=== PATIENT | female | born 1955 | race Caucasian/White ===

== ENCOUNTER 2016-10-08 15:37 | Emergency (ER) | payer MEDICARE ==
[~2016-10-08] VITALS: Ht 162.6 cm; Wt 95.5 kg
[~2016-10-08 15:37] MED LIST: /CELE20CA; /CELE20CA PO; /ESCI10TA; /GLIM4TA; ACET65TA PO; ATEN50TA2; ECOT325T5; ECOT500T PO; FERR325T PO; GLUC1000; GLUC1000 PO; INSULANT SC; Januvia; KLOR10TA PO; LASI40TA; LASI40TA PO; LISI5TAB PO; LOPR50TA PO; MICA40TA; SIMV10TA2; SIMV20TA2 PO; TESS100C OR; TRAM50TA2 PO; ZITH500T PO; lotrimin TOP; mucinex PO
[2016-10-08] MEDS ORDERED: NS 1,000 ML IV ONE (16:00)
[2016-10-08] MEDS ORDERED: LISI40TAB (16:08)
[2016-10-08] MEDS ORDERED: LANTINJ4 (16:08)
[2016-10-08] MEDS ORDERED: ROSU40TA (16:08)
[2016-10-08 16:35] LABS: BASO # 0.1 K/mm3 (0.0-0.2); BASO % 0.8 % (0.0-1.0); EOS # 0.1 K/mm3 (0.0-0.50); EOS % 1.3 % (0.0-3.0); LARGE UNSTAINED CELL # 0.1 K/mm3 (0.0-0.4); LARGE UNSTAINED CELL % 1.1 % (0.0-4.0); LYMPH # 2.1 K/mm3 (1.5-4.5); LYMPH % 26.2 % (24.0-44.0); MEAN CORPUSCULAR HEMOGLOBIN 26.6 pg (27.0-33.0); MEAN CORPUSCULAR HGB CONC 33.5 g/dl (32.0-36.5); MEAN CORPUSCULAR VOLUME 79.7 fl (80.0-96.0); MONO # 0.4 K/mm3 (0.0-0.8); MONO % 4.8 % (0.0-5.0); NEUTROPHILS % 65.7 % (36.0-66.0); PLATELET COUNT, AUTOMATED 212 k/mm3 (150-450); RED CELL DISTRIBUTION WIDTH 12.8 % (11.5-14.5); WHITE BLOOD COUNT 7.6 K/mm3 (4.0-10.0)
[2016-10-08 16:35] LABS: VENOUS BASE EXCESS -0.3 (-2.0-2.0); VENOUS O2 SATURATION 85.5 % (60.0-80.0); VENOUS PARTIAL PRESSURE CO2 43.3 mmHg (38.0-50.0); VENOUS PARTIAL PRESSURE O2 50.6 mmHg (30.0-50.0); VENOUS STANDARD HCO3 23.9 MEQ/L; VENOUS TOTAL CO2 26.3 MEQ/L (24.0-28.0)
[2016-10-08 17:04] LABS: ALBUMIN/GLOBULIN RATIO 0.86 (1.00-1.93); ALKALINE PHOSPHATASE 150 U/L (45-117); ALT/SGPT 13 U/L (12-78); ANION GAP 6 MEQ/L (8-16); AST/SGOT 7 U/L (15-37); BILIRUBIN,DIRECT < 0.1 MG/DL (0.0-0.2); BILIRUBIN,TOTAL 0.3 MG/DL (0.2-1.0); BLOOD UREA NITROGEN 13 MG/DL (7-18); CALCIUM LEVEL 8.6 MG/DL (8.8-10.2); CARBON DIOXIDE LEVEL 27 MEQ/L (21-32); CHLORIDE LEVEL 98 MEQ/L (98-107); CREATININE FOR GFR 0.89 MG/DL (0.55-1.02); GLOMERULAR FILTRATION RATE > 60.0 (>45); POTASSIUM SERUM 4.1 MEQ/L (3.5-5.1); SODIUM LEVEL 131 MEQ/L (136-145); TOTAL PROTEIN 6.5 GM/DL (6.4-8.2)
[2016-10-08 17:05] LABS: GLUCOSE, FASTING 486 MG/DL (80-110)
[2016-10-08] MEDS ORDERED: HumuLIN R (REGULAR) INSULIN (NovoLIN R) **100U/ML** PER UNIT IV ONE (18:45)
[2016-10-08 20:30] VITALS: BP 168/81
[2016-10-08] MEDS ORDERED: DOXYCYCLINE HYCLATE 100 MG TAB PO ONE (20:30)
[2016-10-08] MEDS ORDERED: NYST1POW9 TOP (20:31)
[2016-10-08] MEDS ORDERED: DOXY100C37 PO (20:41)
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
== END 2016-10-08 21:11 | disposition home or self-care (01) ==
LOC: EDBD 15:37 → M ED 15:37
DX: B37.2 Candidiasis of skin and nail (principal); E11.65 Type 2 diabetes mellitus with hyperglycemia; E11.69 Type 2 diabetes mellitus with other specified complication; S31.809A Unspecified open wound of unspecified buttock, initial encounter; S41.001A Unspecified open wound of right shoulder, initial encounter; X58.XXXA Exposure to other specified factors, initial encounter; Y92.89 Other specified places as the place of occurrence of the external cause; Y93.89 Activity, other specified; Y99.8 Other external cause status; I10 Essential (primary) hypertension; E78.9 Disorder of lipoprotein metabolism, unspecified; E07.9 Disorder of thyroid, unspecified; E66.01 Morbid (severe) obesity due to excess calories; I48.91 Unspecified atrial fibrillation; Z85.42 Personal history of malignant neoplasm of other parts of uterus; Z90.710 Acquired absence of both cervix and uterus; F32.9 Major depressive disorder, single episode, unspecified; K21.9 Gastro-esophageal reflux disease without esophagitis; R32 Unspecified urinary incontinence; Z79.899 Other long term (current) drug therapy; Z79.4 Long term (current) use of insulin

== ENCOUNTER 2017-04-25 20:32 | Emergency (ER) | payer MEDICARE ==
[2017-04-25 22:05] LABS: BEDSIDE GLUCOSE 345 MG/DL (80-115)
[2017-04-25] MEDS: HumaLOG INSULIN (NovoLOG) PER UNIT SC (22:19)
[2017-04-25 23:30] LABS: BEDSIDE GLUCOSE 269 MG/DL (80-115)
== END 2017-04-26 | disposition home or self-care (01) ==
LOC: M ED 04-26
DX: E11.65 Type 2 diabetes mellitus with hyperglycemia (principal); I10 Essential (primary) hypertension; Z91.14 Patient's other noncompliance with medication regimen; Z79.899 Other long term (current) drug therapy; Z79.4 Long term (current) use of insulin
CPT/HCPCS: 99284

== ENCOUNTER 2017-04-30 15:52 | Emergency (ER) | payer MEDICARE, MEDICAID ==
[2017-04-30 16:58] LABS: BASO % 0.3 % (0.0-1.0); HEMATOCRIT 34.4 % (36.0-47.0); IMMATURE GRANULOCYTE # 0.1 10^3/uL (0-0); IMMATURE GRANULOCYTE % 0.7 % (0-0); LYMPH # 0.8 10^3/uL (1.5-4.5); MEAN CORPUSCULAR VOLUME 75.1 fl (80.0-96.0); MONO # 0.8 10^3/uL (0.0-0.8); MONO % 7.3 % (0.0-5.0); NEUTROPHILS # 8.7 10^3/uL (1.8-7.7); NEUTROPHILS % 83.7 % (36.0-66.0); PLATELET COUNT, AUTOMATED 207 10^3/uL (150-450); RED BLOOD COUNT 4.58 10^6/uL (4.00-5.40); RED CELL DISTRIBUTION WIDTH 13.4 % (11.5-14.5); WHITE BLOOD COUNT 10.4 10^3/uL (4.0-10.0)
[2017-04-30] MEDS: NS 1,000 ML IV (17:05)
[2017-04-30] MEDS: ONDANSETRON 4MG/2ML VIAL (J2405) IV (17:05)
[2017-04-30] MEDS: ACETAMINOPHEN 325 MG TAB PO (17:06)
[2017-04-30 17:15] LABS: ALBUMIN 2.5 GM/DL (3.2-5.2); ALBUMIN/GLOBULIN RATIO 0.51 (1.00-1.93); ALKALINE PHOSPHATASE 92 U/L (45-117); ALT/SGPT 13 U/L (12-78); AMYLASE 20 U/L (25-115); ANION GAP 7 MEQ/L (8-16); AST/SGOT 14 U/L (7-37); BILIRUBIN,DIRECT 0.1 MG/DL (0.0-0.2); BILIRUBIN,TOTAL 0.6 MG/DL (0.2-1.0); BLOOD UREA NITROGEN 12 MG/DL (7-18); CALCIUM LEVEL 8.3 MG/DL (8.8-10.2); CARBON DIOXIDE LEVEL 28 MEQ/L (21-32); CHLORIDE LEVEL 94 MEQ/L (98-107); CPK CREATINE PHOSPHOKINASE 18 U/L (26-192); CREATININE FOR GFR 0.82 MG/DL (0.55-1.30); GLOMERULAR FILTRATION RATE > 60.0 (>45); GLUCOSE, FASTING 348 MG/DL (70-100); LIPASE 86 U/L (73-393); MB/CK RELATIVE INDEX 5.55 (< OR =4); POTASSIUM SERUM 3.9 MEQ/L (3.5-5.1); SODIUM LEVEL 129 MEQ/L (136-145); TOTAL PROTEIN 7.4 GM/DL (6.4-8.2); TROPONIN I < 0.02 NG/ML (< 0.10)
[2017-04-30 18:04] LABS: INFLUENZA A AMPLIFICATION NEGATIVE (NEGATIVE); INFLUENZA B AMPLIFICATION NEGATIVE (NEGATIVE)
== END 2017-04-30 20:24 | disposition home or self-care (01) ==
LOC: M ED 15:52
DX: B34.9 Viral infection, unspecified (principal); E11.9 Type 2 diabetes mellitus without complications; I10 Essential (primary) hypertension; F17.210 Nicotine dependence, cigarettes, uncomplicated; Z79.4 Long term (current) use of insulin
CPT/HCPCS: J2405

== ENCOUNTER → 2017-05-19 | Outpatient (REF) | payer MEDICARE, MEDICAID ==
[2017-05-19 20:12] LABS: BASO # 0.1 10^3/uL (0.0-0.2); BASO % 0.8 % (0.0-1.0); EOS # 0.1 10^3/uL (0.0-0.50); EOS % 0.9 % (0.0-3.0); HEMATOCRIT 34.1 % (36.0-47.0); HEMOGLOBIN 10.4 g/dl (12.0-16.0); IMMATURE GRANULOCYTE % 0.4 % (0-3.0); LYMPH # 2.7 10^3/uL (1.5-4.5); LYMPH % 35.5 % (24.0-44.0); MEAN CORPUSCULAR HEMOGLOBIN 23.8 pg (27.0-33.0); MEAN CORPUSCULAR HGB CONC 30.5 g/dl (32.0-36.5); MONO # 0.5 10^3/uL (0.0-0.8); MONO % 5.8 % (0.0-5.0); NEUTROPHILS # 4.4 10^3/uL (1.8-7.7); NEUTROPHILS % 56.6 % (36.0-66.0); PLATELET COUNT, AUTOMATED 278 10^3/uL (150-450); RED BLOOD COUNT 4.37 10^6/uL (4.00-5.40); RED CELL DISTRIBUTION WIDTH 13.9 % (11.5-14.5); WHITE BLOOD COUNT 7.7 10^3/uL (4.0-10.0)
[2017-05-19 21:09] LABS: ALBUMIN 2.8 GM/DL (3.2-5.2); ALBUMIN/GLOBULIN RATIO 0.72 (1.00-1.93); ALKALINE PHOSPHATASE 82 U/L (45-117); ALT/SGPT 13 U/L (12-78); ANION GAP 8 MEQ/L (8-16); AST/SGOT 13 U/L (7-37); BILIRUBIN,TOTAL 0.2 MG/DL (0.2-1.0); BLOOD UREA NITROGEN 8 MG/DL (7-18); CALCIUM LEVEL 8.4 MG/DL (8.8-10.2); CARBON DIOXIDE LEVEL 27 MEQ/L (21-32); CHLORIDE LEVEL 110 MEQ/L (98-107); CREATININE FOR GFR 0.61 MG/DL (0.55-1.30); GLOMERULAR FILTRATION RATE > 60.0 (>45); GLUCOSE, FASTING 131 MG/DL (70-100); SODIUM LEVEL 145 MEQ/L (136-145); TOTAL PROTEIN 6.7 GM/DL (6.4-8.2)
== END ==
LOC: M LAB REF 19:25
DX: E03.9 Hypothyroidism, unspecified (principal)
CPT/HCPCS: 84443

== ENCOUNTER 2017-12-09 18:48 | Emergency (ER) | payer MEDICARE, MEDICAID ==
[2017-12-09 19:40] LABS: BASO % 0.5 % (0.0-1.0); EOS # 0.2 10^3/uL (0.0-0.50); EOS % 1.7 % (0.0-3.0); HEMOGLOBIN 12.6 g/dl (12.0-15.5); IMMATURE GRANULOCYTE % 0.3 % (0-3.0); LYMPH # 2.7 10^3/uL (1.5-4.5); LYMPH % 31.5 % (24.0-44.0); MEAN CORPUSCULAR HEMOGLOBIN 24.5 pg (27.0-33.0); MEAN CORPUSCULAR HGB CONC 32.3 g/dl (32.0-36.5); MEAN CORPUSCULAR VOLUME 75.7 fl (80.0-96.0); MONO # 0.6 10^3/uL (0.0-0.8); MONO % 7.4 % (0.0-5.0); NEUTROPHILS # 5.1 10^3/uL (1.8-7.7); NEUTROPHILS % 58.6 % (36.0-66.0); PLATELET COUNT, AUTOMATED 245 10^3/uL (150-450); RED BLOOD COUNT 5.15 10^6/uL (4.00-5.40); RED CELL DISTRIBUTION WIDTH 14.6 % (11.5-14.5); WHITE BLOOD COUNT 8.7 10^3/uL (4.0-10.0)
[2017-12-09 19:46] LABS: INR 0.98; PARTIAL THROMBOPLASTIN TIME 32.3 SECONDS (25.4-37.6); PROTHROMBIN TIME 13.1 SECONDS (12.1-14.4)
[2017-12-09 19:58] LABS: ANION GAP 7 MEQ/L (8-16); BLOOD UREA NITROGEN 22 MG/DL (7-18); CALCIUM LEVEL 9.3 MG/DL (8.8-10.2); CARBON DIOXIDE LEVEL 29 MEQ/L (21-32); CHLORIDE LEVEL 101 MEQ/L (98-107); CK-MB VALUE MASS < 1.0 NG/ML (<3.6); CPK CREATINE PHOSPHOKINASE 25 U/L (26-192); CREATININE FOR GFR 1.11 MG/DL (0.55-1.30); GLOMERULAR FILTRATION RATE 52.8 (>45); GLUCOSE, FASTING 196 MG/DL (70-100); POTASSIUM SERUM 4.4 MEQ/L (3.5-5.1); SODIUM LEVEL 137 MEQ/L (136-145); TROPONIN I < 0.02 NG/ML (< 0.10)
[2017-12-09] MEDS: PANTOPRAZOLE 40MG INJ (PROTONIX) (C9113) IV (20:10)
[2017-12-09] MEDS: NS 500 ML IV (20:10)
== END 2017-12-09 21:22 | disposition home or self-care (01) ==
LOC: M ED 18:48
DX: K21.9 Gastro-esophageal reflux disease without esophagitis (principal); E86.0 Dehydration; L98.499 Non-pressure chronic ulcer of skin of other sites with unspecified severity; I48.91 Unspecified atrial fibrillation; I10 Essential (primary) hypertension; E78.5 Hyperlipidemia, unspecified; M54.9 Dorsalgia, unspecified; D50.9 Iron deficiency anemia, unspecified; Z79.899 Other long term (current) drug therapy
CPT/HCPCS: C9113

== ENCOUNTER → 2017-12-28 | Outpatient (REF) | payer MEDICARE, MEDICAID ==
[2017-12-28 18:06] LABS: BASO # 0.1 10^3/uL (0.0-0.2); BASO % 0.8 % (0.0-1.0); EOS # 0.1 10^3/uL (0.0-0.50); EOS % 1.5 % (0.0-3.0); HEMATOCRIT 35.7 % (36.0-47.0); HEMOGLOBIN 11.1 g/dl (12.0-15.5); LYMPH # 1.9 10^3/uL (1.5-4.5); MEAN CORPUSCULAR HEMOGLOBIN 23.9 pg (27.0-33.0); MEAN CORPUSCULAR HGB CONC 31.1 g/dl (32.0-36.5); MEAN CORPUSCULAR VOLUME 76.8 fl (80.0-96.0); MONO # 0.4 10^3/uL (0.0-0.8); MONO % 4.8 % (0.0-5.0); NEUTROPHILS # 6.5 10^3/uL (1.8-7.7); NEUTROPHILS % 70.9 % (36.0-66.0); PLATELET COUNT, AUTOMATED 271 10^3/uL (150-450); RED BLOOD COUNT 4.65 10^6/uL (4.00-5.40); RED CELL DISTRIBUTION WIDTH 14.1 % (11.5-14.5); WHITE BLOOD COUNT 9.2 10^3/uL (4.0-10.0)
[2017-12-28 18:41] LABS: ALBUMIN 2.7 GM/DL (3.2-5.2); ALBUMIN/GLOBULIN RATIO 0.59 (1.00-1.93); ALKALINE PHOSPHATASE 145 U/L (45-117); ALT/SGPT 18 U/L (12-78); ANION GAP 7 MEQ/L (8-16); AST/SGOT 12 U/L (7-37); BILIRUBIN,TOTAL 0.3 MG/DL (0.2-1.0); BLOOD UREA NITROGEN 19 MG/DL (7-18); CALCIUM LEVEL 8.4 MG/DL (8.8-10.2); CARBON DIOXIDE LEVEL 28 MEQ/L (21-32); CHLORIDE LEVEL 103 MEQ/L (98-107); CHOLESTEROL LEVEL 191 MG/DL (<200); CHOLESTEROL RISK RATIO 5.457 (<5); CREATININE FOR GFR 0.77 MG/DL (0.55-1.30); FREE T4 1.11 NG/DL (0.76-1.46); GLOMERULAR FILTRATION RATE > 60.0 (>45); GLUCOSE, FASTING 264 MG/DL (70-100); HDL CHOLESTEROL 35 MG/DL (>40); LDL CHOLESTEROL 119 MG/DL (<100); NON-HDL-C 156 MG/DL; POTASSIUM SERUM 4.7 MEQ/L (3.5-5.1); SODIUM LEVEL 138 MEQ/L (136-145); TOTAL PROTEIN 7.3 GM/DL (6.4-8.2); TRIGLYCERIDES LEVEL 186 MG/DL (<150)
[2017-12-28 22:02] LABS: ESTIMATED AVERAGE GLUCOSE 214 MG/DL (60-110); HEMOGLOBIN A1c 9.1 %
== END ==
LOC: M LAB REF 17:16
DX: E03.9 Hypothyroidism, unspecified (principal); E11.9 Type 2 diabetes mellitus without complications
CPT/HCPCS: 84443

== ENCOUNTER 2018-03-25 13:01 | Inpatient (IN) | payer MEDICARE, MEDICAID ==
[~2018-03-25] VITALS: Ht 162.6 cm; Wt 89.1 kg
[~2018-03-25 13:01] MED LIST changes: +DOXY100C37 PO; +LANTINJ4 SC; +LISI40TAB PO; +NYST1POW9 TOP; +ROSU40TA3 PO; +ZOFR4TAB14 PO
[2018-03-25] MEDS ORDERED: LABETALOL HCL 100 MG/20 ML VIAL IV STA ×3 (13:41→19:30)
[2018-03-25 13:51] LABS: BASO % 0.6 % (0.0-1.0); EOS # 0.2 10^3/uL (0.0-0.50); EOS % 2.4 % (0.0-3.0); HEMATOCRIT 37.4 % (36.0-47.0); HEMOGLOBIN 11.9 g/dl (12.0-15.5); LYMPH # 2.2 10^3/uL (1.5-4.5); LYMPH % 32.4 % (24.0-44.0); MEAN CORPUSCULAR HEMOGLOBIN 24.7 pg (27.0-33.0); MEAN CORPUSCULAR HGB CONC 31.8 g/dl (32.0-36.5); MEAN CORPUSCULAR VOLUME 77.6 fl (80.0-96.0); MONO # 0.4 10^3/uL (0.0-0.8); NEUTROPHILS % 58.3 % (36.0-66.0); PLATELET COUNT, AUTOMATED 158 10^3/uL (150-450); RED BLOOD COUNT 4.82 10^6/uL (4.00-5.40); WHITE BLOOD COUNT 6.8 10^3/uL (4.0-10.0)
--- NOTE | 2018-03-25 13:53 | REP ---
Clinical: Altered mental status . Comparison: 07/15/2015 . Findings: The mediastinum and cardiac silhouette are stable and within normal limits for portable technique. The lung hooks demonstrate chronic stable changes without acute consolidation, effusion, or pneumothorax. Skeletal structures are intact. Impression: Chronic stable changes. No acute cardiopulmonary process appreciated. Electronically Signed by Shad Arnold MD 03/25/2018 01:45 P
[2018-03-25 14:17] LABS: ACETAMINOPHEN LEVEL < 2.0 UG/ML (10.0-30.0); ALT/SGPT 11 U/L (12-78); BILIRUBIN,DIRECT < 0.1 MG/DL (0.0-0.2); BILIRUBIN,TOTAL 0.3 MG/DL (0.2-1.0); BLOOD UREA NITROGEN 22 MG/DL (7-18); CALCIUM LEVEL 8.5 MG/DL (8.8-10.2); CARBON DIOXIDE LEVEL 27 MEQ/L (21-32); CHLORIDE LEVEL 108 MEQ/L (98-107); CPK CREATINE PHOSPHOKINASE 43 U/L (26-192); CREATININE FOR GFR 0.67 MG/DL (0.55-1.30); ETHYL ALCOHOL (ETHANOL) 0.003 % (0.000-0.010); GLOMERULAR FILTRATION RATE > 60.0 (>45); GLUCOSE, FASTING 138 MG/DL (70-100); MB/CK RELATIVE INDEX 2.79 (< OR =4); SALICYLATE LEVEL < 1.7 MG/DL (5.0-30.0); SODIUM LEVEL 141 MEQ/L (136-145); TOTAL PROTEIN 6.5 GM/DL (6.4-8.2); TROPONIN I < 0.02 NG/ML (< 0.10)
[2018-03-25] MEDS ORDERED: LORazepam 2 MG/ML VIAL (J2060) IV STA (16:24)
[2018-03-25] MEDS ORDERED: LORazepam 2 MG/ML VIAL (J2060) As Ordered ONE (16:26)
--- NOTE | 2018-03-25 17:20 | ECGEPIP ---
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
--- NOTE | 2018-03-25 17:57 | REPVR ---
EXAM: MR Head Without Contrast EXAM DATE/TIME: 03/25/2018 4:49 PM CLINICAL HISTORY: 63 years old, female; Pain; Other: Vision loss TECHNIQUE: MR of the head without contrast. COMPARISON: CT Head without contrast 11/22/2013 7:56 PM FINDINGS: Brain: Small focus of abnormal diffusion anterior superior left parietal lobe may represent a small cortical infarct. Similar smaller focus seen on the right. Findings may also be artifactual and as such should be correlated clinically. Multiple foci of T2 lengthening are demonstrated in the subcortical, periventricular and centrum semiovale white matter consistent with age-related small vessel gliosis. Mild parenchymal volume loss. Ventricles: Normal. No ventriculomegaly. Bones/joints: Unremarkable Soft tissues: Normal. Sinuses: Normal as visualized. No acute sinusitis. Mastoid air cells: Normal as visualized. No mastoid effusion. Orbits: Unremarkable. IMPRESSION: 1. Small focus of abnormal diffusion anterior superior left parietal lobe may represent a small cortical infarct. Similar smaller focus seen on the right. Findings may also be artifactual and as such should be correlated clinically. 2. Multiple foci of T2 lengthening are demonstrated in the subcortical, periventricular and centrum semiovale white matter consistent with age-related small vessel gliosis. 3. Mild parenchymal volume loss. Electronically signed by: Vance Mota On 03/25/2018 17:56:57 PM
--- NOTE | 2018-03-25 18:00 | REPVR ---
EXAM: MR Angiogram Head Without Contrast, Arteries EXAM DATE/TIME: 03/25/2018 4:49 PM CLINICAL HISTORY: 63 years old, female; Signs and symptoms; Visual disturbance; Type not specified; Patient HX: Vision loss TECHNIQUE: MR angiogram head without contrast. Exam focused on the arteries. MIP reconstructed images were created and reviewed. COMPARISON: CT Head without contrast 11/22/2013 7:56 PM FINDINGS: Right internal carotid artery: Luminal irregularity demonstrated in the right intracranial carotid artery. No significant stenoses. Right anterior cerebral artery: Unremarkable. No occlusion or significant stenosis. No aneurysm. Right middle cerebral artery: Unremarkable. No occlusion or significant stenosis. No aneurysm. Right posterior cerebral artery: Unremarkable. No occlusion or significant stenosis. No aneurysm. Right vertebral artery: Unremarkable. No occlusion or significant stenosis. No aneurysm. Left internal carotid artery: Luminal irregularity demonstrated in the left intracranial carotid artery. No significant stenoses. Left anterior cerebral artery: Unremarkable. No occlusion or significant stenosis. No aneurysm. Left middle cerebral artery: Unremarkable. No occlusion or significant stenosis. No aneurysm. Left posterior cerebral artery: Unremarkable. No occlusion or significant stenosis. No aneurysm. Left vertebral artery: Unremarkable. No occlusion or significant stenosis. No aneurysm. Basilar artery: Unremarkable. No occlusion or significant stenosis. No aneurysm. IMPRESSION: 1. Luminal irregularity demonstrated in the right intracranial carotid artery. No significant stenoses. 2. Luminal irregularity demonstrated in the left intracranial carotid artery. No significant stenoses. Electronically signed by: Vance Mota On 03/25/2018 18:00:15 PM
[2018-03-25] MEDS ORDERED: ASPIRIN 325 MG TAB PO ONE (18:45)
[2018-03-25] MEDS ORDERED: METF10004 PO (19:23)
[2018-03-25] MEDS ORDERED: ONDA4TAB5 PO (19:23)
[2018-03-25] MEDS ORDERED: FERR324T2 PO (19:23)
[2018-03-25] MEDS ORDERED: LEVO125T4 PO (19:24)
[2018-03-25] MEDS ORDERED: BISACODYL 5 MG TAB PO PRN (20:45)
[2018-03-25] MEDS ORDERED: DEXTROSE 50% 50 ML SYRINGE IV PRN (20:45)
[2018-03-25] MEDS ORDERED: GLUCAGON FOR INJ 1 MG VIAL (J1610) SC PRN (20:45)
[2018-03-25] MEDS ORDERED: GLUCOSE 4 GM CHEW TABLET PO PRN (20:45)
[2018-03-25] MEDS ORDERED: BISACODYL 10 MG SUPP PR PRN (20:45)
[2018-03-25] MEDS: HumaLOG INSULIN (NovoLOG) PER UNIT SC SCH (21:00)
--- NOTE | 2018-03-25 21:05 | HPEPDOC ---
[facility] Medical History & Physical Date of Admission Mar 25, 2018 Attending Physician: HAWK RIOS MD History and Physical CHIEF COMPLAINT: [Left eye floating black spots that started yesterday] HISTORY OF PRESENT ILLNESS: [63-year-old female was in a few past medical history of atrial fibrillation currently not on anticoagulant, hypothyroidism, diabetes, hypertension, history of uterine cancer, chronic pain who has been noncompliant to medication for the past 5 months who presents complaining of left eye vision change that started yesterday. Patient states that she has black spots floating on her left eye but not on the right. Patient denies of any acute migraine or headache at this time she does have history of migraine in the past. She feels that this is different. Patient denies any chest pain, shortness of breath, headache, dizziness, and unilateral weakness. Patient was a denies a slurring of the speech. Patient was recently ill due to viral illness that resolved 2 days ago. She contacted this from her daughter but patient feels that she is back to her baseline except that this vision change. Patient states that she has lotion or any swelling but it is not pitting. Patient has chronic urinary and fecal incontinence. Patient states that she has been noncompliant to her medication due to cost. In the emergency room patient was evaluated with MRI of the brain which showed Small focus of abnormal diffusion anterior superior left parietal lobe may represent a small cortical infarct. Similar smal ler focus seen on the right. Spoke to neurology who did not feel based on patients clinical history that this was a true acute stroke at this time as patients symptoms improved with blood pressure control in the ER. Patient is being him in for further evaluation and treatment for hypertensive urgency in addition rule out CVA. Review system: 10 point review systems negative than those described in HPI PMH:A.fib,Chronic pain, uterine cancer, hypothyroidism, DM,HTN SMH: tonsillectomy, hysterectomy Social history: no smoking but exposure to second hand smoking, no alcohol, no ivda FMH: noncontributory ALLERGIES: Please see below. HOME MEDICATIONS: Please see below. PHYSICAL EXAMINATION: VITAL SIGNS: Please see below GENERAL APPEARANCE: Resting comfortably HEENT: Normocephalic, PERRLA, Mucous moist, CARDIOVASCULAR: S1,S2, pulse present, regularly, regular LUNGS: Equal air entry b/l, no wheezes or crackle ABDOMEN: Soft, BS present, no tenderness, no guarding GENITOURINARY: No [place] EXTREMITIES: B/L nonpitting lower extremity swelling, capillary refill present SKIN: Warm, No fever NEUROLOGICAL: Cranial nerves grossly intact, patient awake, and Xarelto question without difficulty, follows command without difficulty, has normal gaze, patient has visual field intact but she has dark spots in her vision with the left eye, no facial palsy, no upper and lower extremity motor arm drift, no limb ataxia, sensory Zantac, language no aphasia, no dysarthria and no neglect PSYCHIATRIC: Normal mood and affect for current situation, daughter at the bedside LABORATORY DATA: See below. IMAGING: [CXR: Chronic stable changes. No acute cardiopulmonary process appreciated. MRI brain: 1. Small focus of abnormal diffusion anterior superior left parietal lobe may represent a small cortical infarct. Similar smaller focus seen on the right. Findings may also be artifactual and as such should be correlated clinically. 2. Multiple foci of T2 lengthening are demonstrated in the subcortical, periventricular and centrum semiovale white matter consistent with age-related small vessel gliosis. 3. Mild parenchymal volume loss. MRA brain: 1. Luminal irregularity demonstrated in the right intracranial carotid artery. No significant stenoses. 2. Luminal irregularity demonstrated in the left intracranial carotid artery. No significant stenoses. ] MICROBIOLOGY: Please see below. Assessment and plan: 63-year-old female was in a few past medical history of atrial fibrillation cu rrently not on anticoagulant, hypothyroidism, diabetes, hypertension, history of uterine cancer, chronic pain who has been noncompliant to medication for the past 5 months who presents complaining of left eye vision change that started yesterday. Hypertensive urgency Judicious blood pressure control Vital monitoring Spoke with neurology okayed to keep SBP in the 150 range Rule out CVA Neurology consult with Dr. Fletcher, discussed the case and does not believe MRI showed true CVA. Judicious blood pressure control recommended and further CVA workup as below. Neuro checks Telemetry, serial cardiac enzyme, echocardiogram Lipid profile, TSH Aspirin, statin Status post MRI MRA of the brain Atrial fibrillation, not on anticoagulant at home Utilize aspirin for now and consider long-term anticoagulant but noncompliance and lack of finances may be an issue Social service consult Telemetry, serial cardiac enzyme, echocardiogram Rate control if needed Diabetes FS monitoring, sliding scale, hold by mouth medication, home utilize long-acting insulin dose unknown, monitor for adjust A1c Hypertension Resume home regimen, treat as above Hypothyroidism Resume Synthroid, TSH level Nonpitting lower extremity swelling Lower extremity Doppler DVT prophylaxis with heparin subcutaneous Vital Signs Vital Signs Date Time Temp Pulse Resp B/P (MAP) Pulse Ox O2 Delivery O2 Flow Rate FiO2 03/25/18 19:31 76 99 03/25/18 19:30 185/99 03/25/18 17:40 98.6 20 Room Air Laboratory Data Labs 24H Laboratory Tests 2 03/25/18 13:38: Immature Granulocyte % (Auto) 0.3, White Blood Count 6.8, Red Blood Count 4.82, Hemoglobin 11.9L, Hematocrit 37.4, Mean Corpuscular Volume 77.6L, Mean Corpuscular Hemoglobin 24.7L, Mean Corpuscular Hemoglobin Concent 31.8L, Red Cell Distribution Width 14.1, Platelet Count 158, Neutrophils (%) (Auto) 58.3, Lymphocytes (%) (Auto) 32.4, Monocytes (%) (Auto) 6.0H, Eosinophils (%) (Auto) 2.4, Basophils (%) (Auto) 0.6, Neutrophils # (Auto) 4.0, Lymphocytes # (Auto) 2.2, Monocytes # (Auto) 0.4, Eosinophils # (Auto) 0.2, Basophils # (Auto) 0.0, Nucleated Red Blood Cells % (auto) 0.0, Anion Gap 6L, Glomerular Filtration Rate > 60.0, Calcium Level 8.5L, Aspartate Amino Transf (AST/SGOT) 11, Alanine Aminotransferase (ALT/SGPT) 11L, Alkaline Phosphatase 88, Total Bilirubin 0.3, Direct Bilirubin < 0.1, Total Creatine Kinase 43, Creatine Kinase MB 1.0, Creatine Kinase MB Relative Index 2.79, Troponin I < 0.02, Total Protein 6.5, Albumin 3.0L, Albumin/Globulin Ratio 0.86L, Thyroid Stimulating Hormone (TSH) 4.440H, Salicylates Level < 1.7L, Acetaminophen Level < 2.0L, Ethyl Alcohol Level 0.003 CBC/BMP Laboratory Tests 03/25/18 13:38 Red Blood Count 4.82, Mean Corpuscular Volume 77.6 L, Mean Corpuscular Hemoglobin 24.7 L, Mean Corpuscular Hemoglobin Concent 31.8 L, Red Cell Distribution Width 14.1, Neutrophils (%) (Auto) 58.3, Lymphocytes (%) (Auto) 32.4, Monocytes (%) (Auto) 6.0 H, Eosinophils (%) (Auto) 2.4, Basophils (%) (Auto) 0.6, Neutrophils # (Auto) 4.0, Lymphocytes # (Auto) 2.2, Monocytes # (Auto) 0.4, Eosinophils # (Auto) 0.2, Basophils # (Auto) 0.0 Home Medications Scheduled Ferrous Sulfate (Ferrous Sulfate) 324 Mg Tab, 324 MG PO BID Insulin Glargine (Lantus Solostar) 100 Unit/Ml Inj, 1 DOSE SC WM PER SLIDING SCALE Levothyroxine Sodium (Synthroid) 125 Mcg Tab, 125 MCG PO DAILY Lisinopril (Lisinopril) 40 Mg Tab, 40 MG PO DAILY Metformin Hydrochloride (Metformin HCl) 1,000 Mg Tab, 1,000 MG PO BID Rosuvastatin Calcium (Rosuvastatin Calcium) 40 Mg Tab, 40 MG PO QPM Scheduled PRN Ondansetron HCl (Ondansetron HCl) 4 Mg Tab, 4 MG PO Q4H PRN for NAUSEA Allergies Coded Allergies: No Known Drug Allergy (Verified Allergy, Unknown, 12/09/17) RICO WANG MD Mar 25, 2018 21:05
[2018-03-25 21:44] LABS: CK-MB VALUE MASS < 1.0 NG/ML (<3.6); CPK CREATINE PHOSPHOKINASE 38 U/L (26-192); MB/CK RELATIVE INDEX 2.63 (< OR =4); TROPONIN I < 0.02 NG/ML (< 0.10)
[2018-03-26] VITALS (9 sets, daily range): BP systolic 142–200; BP diastolic 78–120
[2018-03-26] MEDS: ROSUVASTATIN 10 MG TAB (CRESTOR) PO SCH ×2 (00:14→20:22)
[2018-03-26] MEDS: ACETAMINOPHEN TAB 650MG DOSE (2X325MG) PO PRN ×2 (02:14→20:22)
[2018-03-26] MEDS ORDERED: SLF 3 ML SYR IV PRN (02:45)
[2018-03-26 05:01] LABS: HEMATOCRIT 31.2 % (36.0-47.0); MEAN CORPUSCULAR HEMOGLOBIN 24.8 pg (27.0-33.0); MEAN CORPUSCULAR HGB CONC 32.1 g/dl (32.0-36.5); MEAN CORPUSCULAR VOLUME 77.2 fl (80.0-96.0); PLATELET COUNT, AUTOMATED 146 10^3/uL (150-450); RED BLOOD COUNT 4.04 10^6/uL (4.00-5.40); WHITE BLOOD COUNT 7.5 10^3/uL (4.0-10.0)
[2018-03-26 05:19] LABS: HEMOGLOBIN A1c 8.3 %
[2018-03-26 05:36] LABS: BLOOD UREA NITROGEN 27 MG/DL (7-18); CALCIUM LEVEL 8.4 MG/DL (8.8-10.2); CARBON DIOXIDE LEVEL 27 MEQ/L (21-32); CHLORIDE LEVEL 106 MEQ/L (98-107); CHOLESTEROL LEVEL 140 MG/DL (<200); CHOLESTEROL RISK RATIO 3.888 (<5); CK-MB VALUE MASS < 1.0 NG/ML (<3.6); CPK CREATINE PHOSPHOKINASE 37 U/L (26-192); CREATININE FOR GFR 0.77 MG/DL (0.55-1.30); FREE THYROXINE INDEX 3.8 % (1.3-4.8); GLOMERULAR FILTRATION RATE > 60.0 (>45); GLUCOSE, FASTING 250 MG/DL (70-100); HDL CHOLESTEROL 36 MG/DL (>40); LDL CHOLESTEROL 81 MG/DL (<100); NON-HDL-C 104 MG/DL; POTASSIUM SERUM 3.4 MEQ/L (3.5-5.1); SODIUM LEVEL 140 MEQ/L (136-145); T UPTAKE 40 % (30-39); THYROXINE (T4) 9.5 UG/DL (4.5-12.0); TRIGLYCERIDES LEVEL 117 MG/DL (<150); TROPONIN I < 0.02 NG/ML (< 0.10)
[2018-03-26] MEDS: LEVOTHYROXINE 125MCG TABLET (0.125MG) PO SCH (05:58)
[2018-03-26] MEDS: HEPARIN SOD (PORCINE) 5000 UNITS/ML VIAL SC SCH ×3 (05:59→22:00)
[2018-03-26] MEDS: SLF 3 ML SYR IV SCH ×3 (05:59→22:00)
[2018-03-26] MEDS: ASPIRIN 81 MG CHEW TABLET PO SCH (08:39)
[2018-03-26] MEDS: LISINOPRIL 40 MG TAB PO SCH (08:39)
[2018-03-26] MEDS: HumaLOG INSULIN (NovoLOG) PER UNIT SC SCH ×4 (08:39→20:22)
--- NOTE | 2018-03-26 09:21 | REP ---
Clinical: Pain and swelling . Technique: Shepherd scale and color Doppler evaluation using linear high frequency transducer. Findings: Ultrasound examination of the right and left lower extremity deep venous structures from the common femoral vein to the popliteal vein demonstrates normal compressibility flow and wave patterns in response to respiration and augmentation. There is no evidence for deep venous thrombosis. Impression: No evidence for deep venous thrombosis. Electronically Signed by Shad Arnold MD 03/26/2018 09:13 A
--- NOTE | 2018-03-26 10:09 | IPNPDOC ---
Date Seen The patient was seen on 03/26/18. Progress Note SUBJECTIVE: Patient continues to complain of floaters in her left eye which is new for her for the last 24 hours she otherwise denies other complaints she denies paresthesias or weakness numbness tingling, bladder or bowel incontinence at this time OBJECTIVE PHYSICAL EXAMINATION: VITAL SIGNS: Please see below. GENERAL: female sitting up in bed she does not appear to be in any acute distress she is awake and oriented HEENT: Cranial 2 through 12 are grossly intact CARDIOVASCULAR: 1 S2 regular. RESPIRATORY: Clear to auscultation. ABDOMINAL: Sounds present abdomen soft EXTREMITIES: No clubbing cyanosis or edema NEUROLOGICAL: No focal deficits LABORATORY DATA, IMAGING STUDIES, MICROBIOLOGY: Please see below. Echocardiogram: Ordered and pending. DVT prophylaxis ordered?: Heparin every 8 ASSESSMENT AND PLAN: This is a 63-year-old female with floaters in the left eye and new MRI findings. PROBLEMS: 1. Floaters in the left eye: The etiology is not immediately clear, MRA of the brain reveals luminal irregularities in the right left intracranial carotid arteries no significant stenosis. She also had an MRI of the brain that revealed small focus of abnormal diffusion anterior superior left parietal lobe may result present small cortical infarct as well as seen on the right could also be artifactual. These findings I do not think explain the left floaters phenomena. It persists despite improved control of her blood pressure neurology consultation has been placed and is pending. The patient provides a difficult history she clearly has a very low level of education is self admittedly illiterate she exhibits nonadherence she is unable to get her medications cannot afford them and does not have transportation to get them PFS consultation placed PT OT consultation placed. She certainly has risk factors for CVA uncontrolled diabetes uncontrolled hypertension dyslipidemia and atrial fibrillation without anticoagulation history of uterine cancer however my suspicion for an acute CVA is less neurology consult appreciated. She is presently on aspirin as well as st atin. I suspect she may benefit from outpatient ophthalmology follow-up 2. Hypertension: controlled, she is now receiving lisinopril 40 mg daily I suspect this is a good initial antihypertensive for her given her diabetes. 3. Type 2 diabetes: Elevated hemoglobin A1c she is on insulin sliding scale all consistent carb restrictions to diet. 4. Hypothyroidism: TSH is mildly elevated suspect she has not been taking her medications at home she on Synthroid 25 g since being here 5. Medical noncompliance: Likely related to lack of education capabilities PFS consultation placed 6. Atrial fibrillation: No history of that she is not on anticoagulation. Her chads asked to support is 3. She is female hypertensive diabetic in 1 year she'll be at a level 4. She requires no rate controlling medications, resident she would benefit from anticoagulation did better with the new oral anticoagulation given her difficulty with compliance possibly Nitish will wait until neurology to see the patient evaluated for her images and clinical picture versus anastomotic not to feel she has had any acute CVA for initiating anticoagulation with concern for possible hemorrhagic conversion DISPOSITION: Pending echocardiogram PT and OT and PFS. VS, I&O, 24H, Fishbone Vital Signs/I&O Vital Signs Date Time Temp Pulse Resp B/P (MAP) Pulse Ox O2 Delivery O2 Flow Rate FiO2 03/26/18 08:00 98.7 78 20 190/110 (136) 97 Room Air I&O- Last 24 Hours up to 6 AM 03/26/18 05:59 Output Total 200 ml Balance -200 ml Laboratory Data 24H LABS Laboratory Tests 2 03/25/18 13:38: Immature Granulocyte % (Auto) 0.3, White Blood Count 6.8, Red Blood Count 4.82, Hemoglobin 11.9L, Hematocrit 37.4, Mean Corpuscular Volume 77.6L, Mean Corpuscular Hemoglobin 24.7L, Mean Corpuscular Hemoglobin Concent 31.8L, Red Cell Distribution Width 14.1, Platelet Count 158, Neutrophils (%) (Auto) 58.3, Lymphocytes (%) (Auto) 32.4, Monocytes (%) (Auto) 6.0H, Eosinophils (%) (Auto) 2.4, Basophils (%) (Auto) 0.6, Neutrophils # (Auto) 4.0, Lymphocytes # (Auto) 2.2, Monocytes # (Auto) 0.4, Eosinophils # (Auto) 0.2, Basophils # (Auto) 0.0, Nucleated Red Blood Cells % (auto) 0.0, Anion Gap 6L, Glomerular Filtration Rate > 60.0, Calcium Level 8.5L, Aspartate Amino Transf (AST/SGOT) 11, Alanine Aminotransferase (ALT/SGPT) 11L, Alkaline Phosphatase 88, Total Bilirubin 0.3, Direct Bilirubin < 0.1, Total Creatine Kinase 43, Creatine Kinase MB 1.0, Creatine Kinase MB Relative Index 2.79, Troponin I < 0.02, Total Protein 6.5, Albumin 3.0L, Albumin/Globulin Ratio 0.86L, Thyroid Stimulating Hormone (TSH) 4.440H, Salicylates Level < 1.7L, Acetaminophen Level < 2.0L, Ethyl Alcohol Level 0.003 03/25/18 21:03: Total Creatine Kinase 38, Creatine Kinase MB < 1.0, Creatine Kinase MB Relative Index 2.63, Troponin I < 0.02 03/26/18 00:03: Bedside Glucose (Misc Panel) 206H 03/26/18 04:30: Nucleated Red Blood Cells % (auto) 0.0, Anion Gap 7L, Glomerular Filtration Rate > 60.0, Calcium Level 8.4L, Total Creatine Kinase 37, Creatine Kinase MB < 1.0, Creatine Kinase MB Relative Index 2.70, Troponin I < 0.02, Thyroid Stimulating Hormone (TSH) 6.880H, Estimated Mean Plasma Glucose 192H, Hemoglobin A1c 8.3, Triglycerides Level 117, LDL Cholesterol 81, Total Cholesterol 140, Non-HDL Cholesterol (LDL + VLDL) 104, Total HDL Cholesterol 36L, Cholesterol/HDL Ratio 3.888, Free Thyroxine Index 3.8, Thyroxine (T4) 9.5, Triiodothyronine (T3) Uptake 40H CBC/BMP Laboratory Tests 03/25/18 13:38 Red Blood Count 4.82, Mean Corpuscular Volume 77.6 L, Mean Corpuscular Hemoglobin 24.7 L, Mean Corpuscular Hemoglobin Concent 31.8 L, Red Cell Distribution Width 14.1, Neutrophils (%) (Auto) 58.3, Lymphocytes (%) (Auto) 32.4, Monocytes (%) (Auto) 6.0 H, Eosinophils (%) (Auto) 2.4, Basophils (%) (Auto) 0.6, Neutrophils # (Auto) 4.0, Lymphocytes # (Auto) 2.2, Monocytes # (Auto) 0.4, Eosinophils # (Auto) 0.2, Basophils # (Auto) 0.0 03/26/18 04:30 Red Blood Count 4.04, Mean Corpuscular Volume 77.2 L, Mean Corpuscular Hemoglobin 24.8 L, Mean Corpuscular Hemoglobin Concent 32.1, Red Cell Distribution Width 14.1 HAWK RIOS MD Mar 26, 2018 10:09
[2018-03-26 12:57] LABS: CK-MB VALUE MASS < 1.0 NG/ML (<3.6); CPK CREATINE PHOSPHOKINASE 45 U/L (26-192); MB/CK RELATIVE INDEX 2.22 (< OR =4); TROPONIN I < 0.02 NG/ML (< 0.10)
[2018-03-26] MEDS: hydrALAZINE INJ 20 MG/ML VIAL IV PRN (18:04)
[2018-03-26] MEDS ORDERED: FUROSEMIDE 20 MG/2 ML VIAL (J1940) IV ONE (21:15)
[2018-03-27] VITALS (11 sets, daily range): BP systolic 120–164; BP diastolic 58–90
[2018-03-27 05:34] LABS: BLOOD UREA NITROGEN 27 MG/DL (7-18); CALCIUM LEVEL 8.3 MG/DL (8.8-10.2); CARBON DIOXIDE LEVEL 26 MEQ/L (21-32); CHLORIDE LEVEL 111 MEQ/L (98-107); CREATININE FOR GFR 0.66 MG/DL (0.55-1.30); GLOMERULAR FILTRATION RATE > 60.0 (>45); GLUCOSE, FASTING 155 MG/DL (70-100); MAGNESIUM LEVEL 1.7 MG/DL (1.8-2.4); POTASSIUM SERUM 3.7 MEQ/L (3.5-5.1); SODIUM LEVEL 143 MEQ/L (136-145)
[2018-03-27] MEDS: SLF 3 ML SYR IV SCH ×3 (06:00→21:09)
[2018-03-27] MEDS: HEPARIN SOD (PORCINE) 5000 UNITS/ML VIAL SC SCH ×2 (06:08→14:04)
[2018-03-27] MEDS: LEVOTHYROXINE 125MCG TABLET (0.125MG) PO SCH (06:08)
[2018-03-27] MEDS: HumaLOG INSULIN (NovoLOG) PER UNIT SC SCH ×4 (08:02→21:00)
[2018-03-27] MEDS: ASPIRIN 81 MG CHEW TABLET PO SCH (08:02)
[2018-03-27] MEDS: LISINOPRIL 40 MG TAB PO SCH (08:02)
[2018-03-27] MEDS: hydrALAZINE INJ 20 MG/ML VIAL IV PRN ×2 (09:03→16:43)
--- NOTE | 2018-03-27 09:04 | CR ---
DATE OF CONSULTATION: 03/25/2018 REASON FOR CONSULTATION: Hypertensive urgency, left eye vision loss, possible stroke. HISTORY OF PRESENT ILLNESS: The patient is a 63-year-old female with past medical history of atrial fibrillation, currently not on anticoagulants, history of hypothyroidism, diabetes, hypertension, history of uterine cancer, chronic pain, is noncompliant to medications for the past 5 months presents with left eye vision change. The patient was noted to have systolic blood pressures greater than 200. MRI of the brain was read as possible acute ischemic stroke, however, after careful review there does not appear to be any evidence of acute ischemia. The area described by the radiologist as increased diffusion changes does not corresponds to ADC map changes to support acute stroke. The patient continues to have headache, elevated blood pressure greater than 200 systolic and left eye blurriness. The patient reports that she has not been taking any medications or seeking medical treatment as she has inability to get to her doctor's appointments. She denies any numbness or weakness of the face, arm or leg. She denies any aphasia, dysarthria, vertigo, dizziness, ataxia at this time. REVIEW OF SYSTEMS 14-point review of systems obtained and is negative except as per HPI. PAST MEDICAL HISTORY Atrial fibrillation, chronic pain, uterine cancer, hypothyroidism, diabetes, hypertension. PAST SURGICAL HISTORY Tonsillectomy, hysterectomy. SOCIAL HISTORY The patient denies use of alcohol, tobacco or illicit drugs, had secondhand tobacco exposure. FAMILY HISTORY Noncontributory. ALLERGIES NO KNOWN DRUG ALLERGIES. MEDICATIONS Aspirin 160 mg daily, lisinopril 40 mg daily, Synthroid 124 mcg daily, Crestor 40 mg daily, hydralazine 10 mg p.r.n. hypertension. PHYSICAL EXAMINATION Blood pressure is 200/120, pulse rate 71, respiratory rate is 20, oxygenation is 96% on room air, temperature is 98.6 degrees Fahrenheit, oxygenation 96% on room air. The patient is awake, alert, oriented to person, place and time. Speech, language, comprehension and repetition are intact. Pupils are 3 mm round, reactive to light. Extraocular movements are intact in all directions. Sensation V1, V2, V3 is intact to light touch. No facial asymmetry to activation. Palate elevates symmetrically. Tongue is midline. There is some blurred vision of the left eye without any visual field loss. There is no pronator drift. Strength is 5/5 including bilateral deltoids, biceps, triceps, handgrip, quadriceps, anterior tibialis. Sensory is intact to light touch in all four extremities. Coordination: There is no gross ataxia or dysmetria. Gait deferred. ASSESSMENT Hypertensive urgency, left eye visual blurriness and headache. After careful review, there does not appear to be any acute ischemic stroke. Previously noted changes reported by radiologist appear to be artifact at this time. The hyperintense DWI changes noted by the reading radiologist do not correspond to any hypointense lesion in the ADC map. I recommend optimization of hypertension, management of diabetes and hypothyroidism. Optimize stroke risk factors, continue aspirin 162 mg by mouth daily, management of atrial fibrillation as per primary team and cardiology. Recommend physical therapy (PT)/occupational therapy (OT) evaluation, continue telemetry monitoring.
--- NOTE | 2018-03-27 13:01 | IPNPDOC ---
Date Seen The patient was seen on 03/27/18. Progress Note SUBJECTIVE: Patient continues to complain of floaters in her left eye but otherwise is feeling back to normal. OBJECTIVE PHYSICAL EXAMINATION: VITAL SIGNS: Please see below. GENERAL: female sitting up on the edge of bed eating she does not appear to be in any acute distress she is awake and oriented HEENT: Cranial 2 through 12 are grossly intact CARDIOVASCULAR: S1 S2 regular. RESPIRATORY: Clear to auscultation. ABDOMINAL: Sounds present abdomen soft EXTREMITIES: No clubbing cyanosis or edema NEUROLOGICAL: No focal deficits LABORATORY DATA, IMAGING STUDIES, MICROBIOLOGY: Please see below. Echocardiogram: Ordered and pending. DVT prophylaxis ordered?: Heparin every 8 ASSESSMENT AND PLAN: This is a 63-year-old female with floaters in the left eye and new MRI findings. PROBLEMS: 1. Floaters in the left eye: The etiology is not M immediately clear neurology help is greatly appreciated no evidence of any acute stroke as per neurology recommendations Will start aspirin 160 mg by mouth daily her atrial fibrillation I believe she would benefit from anticoagulation with Eliquis. We will encourage control of her hypertension dyslipidemia. Continue with statin. We'll follow up echocardiogram PTOT as well as PFS given that the patient had difficulty obtaining her medications at home. The patient has very low level education and is admittedly illiterate. 2. Hypertension: controlled, she is now receiving lisinopril 40 mg daily I suspect this is a good initial antihypertensive for her given her diabetes. 3. Type 2 diabetes: Elevated hemoglobin A1c she is on insulin sliding scale all consistent carb restrictions to diet. 4. Hypothyroidism: TSH is mildly elevated suspect she has not been taking her medications at home she on Synthroid 25 g since being here 5. Medical noncompliance: Likely related to lack of education capabilities PFS consultation placed 6. Atrial fibrillation: No history of that she is not on anticoagulation. Her chads score is 3. She is female hypertensive and diabetic giving her 3, in 1 year she'll be at a 4. She requires no rate controlling medications, I feel the patient would benefit from anticoagulation. DISPOSITION: Pending echocardiogram PT and OT and PFS. VS, I&O, 24H, Fishbone Vital Signs/I&O Vital Signs Date Time Temp Pulse Resp B/P (MAP) Pulse Ox O2 Delivery O2 Flow Rate FiO2 03/27/18 10:00 144/80 (101) 03/27/18 08:10 98.3 80 19 97 Room Air I&O- Last 24 Hours up to 6 AM 03/27/18 05:59 Intake Total 1980 ml Output Total 950 ml Balance 1030 ml Laboratory Data 24H LABS Laboratory Tests 2 03/26/18 16:26: Bedside Glucose (Misc Panel) 142H 03/26/18 20:02: Bedside Glucose (Misc Panel) 167H 03/27/18 04:45: Anion Gap 6L, Glomerular Filtration Rate > 60.0, Blood Urea Nitrogen 27H, Creatinine 0.66, Sodium Level 143, Potassium Level 3.7, Chloride Level 111H, Carbon Dioxide Level 26, Calcium Level 8.3L, Magnesium Level 1.7L 03/27/18 11:46: Bedside Glucose (Misc Panel) 227H CBC/BMP Laboratory Tests 03/27/18 04:45 Calcium Level 8.3 L HAWK RIOS MD Mar 27, 2018 13:01
[2018-03-27] MEDS ORDERED: MAG SULF 1GM/100ML (MAG RUN) 1 GM in APPROPRIATE DILUENT 1 EA IV ONE (14:00)
[2018-03-27] MEDS: ACETAMINOPHEN TAB 650MG DOSE (2X325MG) PO PRN (15:20)
[2018-03-27] MEDS: ROSUVASTATIN 10 MG TAB (CRESTOR) PO SCH (21:02)
[2018-03-27] MEDS: APIXABAN 5 MG TAB (ELIQUIS) PO SCH (21:02)
[2018-03-28] VITALS (12 sets, daily range): BP systolic 120–180; BP diastolic 68–100
[2018-03-28] MEDS: SLF 3 ML SYR IV SCH ×3 (05:22→20:28)
[2018-03-28] MEDS: LEVOTHYROXINE 125MCG TABLET (0.125MG) PO SCH (05:22)
[2018-03-28 05:32] LABS: HEMOGLOBIN 10.2 g/dl (12.0-15.5); MEAN CORPUSCULAR HEMOGLOBIN 24.5 pg (27.0-33.0); MEAN CORPUSCULAR HGB CONC 30.9 g/dl (32.0-36.5); MEAN CORPUSCULAR VOLUME 79.3 fl (80.0-96.0); PLATELET COUNT, AUTOMATED 140 10^3/uL (150-450); RED BLOOD COUNT 4.16 10^6/uL (4.00-5.40); WHITE BLOOD COUNT 6.7 10^3/uL (4.0-10.0)
[2018-03-28 05:45] LABS: BLOOD UREA NITROGEN 28 MG/DL (7-18); CALCIUM LEVEL 8.3 MG/DL (8.8-10.2); CARBON DIOXIDE LEVEL 24 MEQ/L (21-32); CHLORIDE LEVEL 110 MEQ/L (98-107); CREATININE FOR GFR 0.72 MG/DL (0.55-1.30); GLOMERULAR FILTRATION RATE > 60.0 (>45); GLUCOSE, FASTING 179 MG/DL (70-100); MAGNESIUM LEVEL 1.9 MG/DL (1.8-2.4); POTASSIUM SERUM 3.8 MEQ/L (3.5-5.1); SODIUM LEVEL 143 MEQ/L (136-145)
[2018-03-28] MEDS: ASPIRIN 81 MG CHEW TABLET PO SCH (09:18)
[2018-03-28] MEDS: APIXABAN 5 MG TAB (ELIQUIS) PO SCH ×2 (09:18→20:28)
[2018-03-28] MEDS: hydrALAZINE INJ 20 MG/ML VIAL IV PRN (09:18)
[2018-03-28] MEDS: LISINOPRIL 40 MG TAB PO SCH ×2 (09:18→20:28)
[2018-03-28] MEDS: HumaLOG INSULIN (NovoLOG) PER UNIT SC SCH ×4 (09:19→20:28)
--- NOTE | 2018-03-28 13:14 | IPNPDOC ---
Text Note Date of Service The patient was seen on 03/28/18. NOTE Subjective: Patient was seen and examined at the bedside. Currently patient has no new complaints, is anxious to go home. Denies any nausea, vomiting, abdominal pain, constipation or diarrhea. Denies any chest pain, shortness of breath or palpitations. Objective: Vitals (See below) General: Lying in bed, no acute distress, comfortable, AAOx3 HEENT: NC, AT CVS: RRR, +S1S2 Lungs: Fair air entry b/l, -w/r/r Abdomen: Soft, ND, NT Extremities: - Edema, - Calf tenderness Assessment and plan: Floater in left eye - etiology unclear - MRA brain 03/25: Luminal irregularity demonstrated in the right intracranial c arotid artery; No significant stenoses. Luminal irregularity demonstrated in the left intracranial carotid artery; No significant stenoses. - MRI brain 03/25: Small focus of abnormal diffusion anterior superior left parietal lobe may represent a small cortical infarct. Similar smaller focus seen on the right. Findings may also be artifactual and as such should be correlated clinically. Multiple foci of T2 lengthening are demonstrated in the subcortical, periventricular and centrum semiovale white matter consistent with age-related small vessel gliosis. Mild parenchymal volume loss. - c/w ASA 160 and Rosuvastatin - Neurology has been consulted; appreciate their input - Will have outpatient f/u with ophthalmology Non-compliance - Patient has very low level education and is admittedly illiterate - Will help establish all follow up appointments prior to departure - PFS on consult Atrial fibrillation - CHADs score: 3 - Has not required rate control medications - Has been started on full anticoagulation; will c/w Eliquis - PFS on board to ensure coverage of medications Deconditioning - c/w PT / OT until cleared for DC home DLP - c/w Rosuvastatin HTN - BP well controlled - c/w Lisinopril; will increase frequency DM2 - A1c of 8.3 - c/w ISS Hypothyroidism - c/w Levothyroxine DVT prophylaxis - c/w Heparin Disposition: - c/w PT & OT until cleared - Will need close f/u as outpatient VS,Fishbone, I+O VS, Fishbone, I+O Laboratory Tests 03/28/18 04:56 Red Blood Count 4.16, Mean Corpuscular Volume 79.3 L, Mean Corpuscular Hemoglobin 24.5 L, Mean Corpuscular Hemoglobin Concent 30.9 L, Red Cell Dist ribution Width 14.6 H, Calcium Level 8.3 L Vital Signs Date Time Temp Pulse Resp B/P (MAP) Pulse Ox O2 Delivery O2 Flow Rate FiO2 03/28/18 11:13 144/72 (96) 03/28/18 07:56 98.3 89 20 96 Room Air I&O- Last 24 Hours up to 6 AM 03/28/18 06:00 Intake Total 960 ml Output Total 600 ml Balance 360 ml EAMON GREWAL MD Mar 28, 2018 13:13
[2018-03-28] MEDS: ROSUVASTATIN 10 MG TAB (CRESTOR) PO SCH (20:27)
[2018-03-29] VITALS: BP 130/80
[2018-03-29 04:00] VITALS: BP 140/77
[2018-03-29] MEDS: SLF 3 ML SYR IV SCH ×2 (06:00→12:30)
[2018-03-29] MEDS: LEVOTHYROXINE 125MCG TABLET (0.125MG) PO SCH (06:00)
--- NOTE | 2018-03-29 07:32 | ECHO ---
DATE OF PROCEDURE: 03/27/2018 HEIGHT: 64 inches WEIGHT: 176 pounds BODY SURFACE AREA: 1.8 6 sq m REFERRING PHYSICIAN: Dr. Chasity Perea INDICATION: Cerebrovascular accident (CVA). MEASUREMENTS: 2D Measurements: RV - 4.2 cm LV - 4.5 cm Septum - 1.3 cm Posterior wall - 1.3 cm Aortic root - 3.0 cm LA - 3.9 cm LVEF - 65% DOPPLER MEASUREMENTS: AV - 1.35 meters per second LVOT - 0.87 meters per second LVOT diameter 2.0 cm MV-E 110 Early mitral deceleration time 208 milliseconds E prime 7, E/E prime ratio 16 PCWP - 18.6 mmHg PV - 1.0 meters per second Pulmonary artery acceleration time 74 milliseconds RVSP 56 mmHg. IVC - 2.4 cm COMMENTS: Normal sinus rhythm without intraventricular conduction disturbance. A somewhat technically challenging study in light of the patient's body habitus but diagnostically useful information was still obtained. M-mode and two-dimensional echocardiography was performed with pulsed, continuous wave, color flow, and tissue Doppler studies. Mild concentric left ventricular hypertrophy with hyperkinetic wall motion. Borderline left atrial enlargement with evidence of impairment of LV diastolic relaxation and at least mildly elevated mean left atrial pressure. Mildly dilated right heart chambers with a normal wall motion but Doppler evidence of at least moderate pulmonary hypertension. Mildly dilated inferior vena cava with reduced respiratory collapse keeping with an elevated central venous pressure. Three equal size aortic cusps with mild aortic sclerosis but no functional abnormality. Mild mitral annular thickening with adequate leaflet separation and mild insufficiency. Normal appearing tricuspid valve but moderate insufficiency. No apparent intracardiac mass or pericardial effusion. If a cardiac source of embolic material is seriously suspect, a transesophageal echocardiogram would be suggested.
[2018-03-29 08:00] VITALS: BP 158/100
[2018-03-29] MEDS: ASPIRIN 81 MG CHEW TABLET PO SCH (08:27)
[2018-03-29] MEDS: APIXABAN 5 MG TAB (ELIQUIS) PO SCH (08:28)
[2018-03-29] MEDS: LISINOPRIL 40 MG TAB PO SCH (08:28)
[2018-03-29] MEDS: HumaLOG INSULIN (NovoLOG) PER UNIT SC SCH ×2 (08:28→12:06)
[2018-03-29 09:28] VITALS: BP 138/84
[2018-03-29] MEDS ORDERED: LISI40TAB PO ×2 (11:02→12:30)
[2018-03-29] MEDS ORDERED: ELIQ5TAB PO ×2 (11:02→12:30)
[2018-03-29] MEDS ORDERED: CHIL81CH2 PO ×2 (11:02→12:30)
[2018-03-29] MEDS ORDERED: FERR324T2 PO ×2 (11:02→12:30)
[2018-03-29] MEDS ORDERED: METF10004 PO ×2 (11:02→12:30)
[2018-03-29] MEDS ORDERED: LEVO125T4 PO ×2 (11:02→12:30)
[2018-03-29] MEDS ORDERED: ROSU40TA3 PO ×2 (11:02→12:30)
--- NOTE | 2018-03-29 13:38 | DS.PDOC ---
Discharge Summary General Date of Admission Mar 27, 2018 at 15:39 Date of Discharge 03/29/2018 Discharge Summary PROCEDURES PERFORMED DURING STAY: [None]. ADMITTING DIAGNOSES / DISCHARGE DIAGNOSES: Floater in left eye - etiology unclear Non-compliance Atrial fibrillation Deconditioning DLP HTN DM2 Hypothyroidism DVT prophylaxis COMPLICATIONS/CHIEF COMPLAINT: Vision changes in left eye HISTORY OF PRESENT ILLNESS: Patient is a 63-year-old female with a PMHx of A. fib, HTN, Hypothyroidism, Uterine cancer, Chronic pain who presented to the ER with complaints of left eye vision changes. Patient was admitted to the hospitalist service for possible TIA. Neurology was called on consultation. Her history reveals that she has not followed any physician and is been noncompliant with medications over last 5 months. HOSPITAL COURSE: Floater in left eye - etiology unclear - MRA brain 03/25: Luminal irregularity demonstrated in the right intracranial carotid artery; No significant stenoses. Luminal irregularity demonstrated in the left intracranial carotid artery; No significant stenoses. - MRI brain 03/25: Small focus of abnormal diffusion anterior superior left pa rietal lobe may represent a small cortical infarct. Similar smaller focus seen on the right. Findings may also be artifactual and as such should be correlated clinically. Multiple foci of T2 lengthening are demonstrated in the subcortical, periventricular and centrum semiovale white matter consistent with age-related small vessel gliosis. Mild parenchymal volume loss. - c/w ASA 160 and Rosuvastatin - Neurology has been consulted; appreciate their input - Will have outpatient f/u with ophthalmology - referral has been provided for follow-up within the next 7 days Non-compliance - Patient has very low level education and is admittedly illiterate - Will help establish all follow up appointments prior to departure - PFS on consult - Advised to follow with Dr. Samuel Crook as well as ophthalmology within the next 7 days Atrial fibrillation - CHADs score: 3 - Has not required rate control medications - Has been started on full anticoagulation; will c/w Nitish - PFS on board to ensure coverage of medications Deconditioning - c/w PT / OT; has cleared for discharge home DLP - c/w Rosuvastatin HTN - BP well controlled - c/w Lisinopril DM2 - A1c of 8.3 - c/w ISS Hypothyroidism - c/w Levothyroxine DVT prophylaxis - c/w Heparin DISCHARGE MEDICATIONS: Please see below. ALLERGIES: Please see below. PHYSICAL EXAMINATION ON DISCHARGE: Vitals (See below) General: Lying in bed, no acute distress, comfortable, AAOx3 HEENT: NC, AT CVS: RRR, +S1S2 Lungs: Fair air entry b/l, auscultation without any wheezing, rales, rhonchi Abdomen: Soft, nondistended, without tenderness Extremities: No evidence of lower extremity edema, - Calf tenderness LABORATORY DATA: Please see below. ACTIVITY: [As tolerated]. DIET: Advised to remain on a consistent carbohydrate diet DISCHARGE PLAN: Follow-up with Dr. Samuel Crook and ophthalmology within the next 7 days Remain compliant with treatment plan and medications Return to the ER if you experience any problems DISPOSITION: Home with home health DISCHARGE CONDITION: [Stable]. TIME SPENT ON DISCHARGE: Greater than [35] minutes. Vital Signs/I&Os Vital Signs Date Time Temp Pulse Resp B/P (MAP) Pulse Ox O2 Delivery O2 Flow Rate FiO2 03/29/18 09:28 138/84 (102) 03/29/18 08:00 98.8 80 20 95 Room Air I&O- Last 24 Hours up to 6 AM 03/29/18 06:00 Intake Total 1260 ml Output Total 150 ml Balance 1110 ml Laboratory Data Labs 24H Laboratory Tests 2 03/28/18 20:26: Bedside Glucose (Misc Panel) 192H 03/29/18 06:54: Bedside Glucose (Misc Panel) 162H 03/29/18 11:28: Bedside Glucose (Misc Panel) 185H FSBS Laboratory Tests Test 03/28/18 20:26 03/29/18 06:54 03/29/18 11:28 Range/Units Bedside Glucose (Misc Panel) 192 162 185 80-115 MG/DL Discharge Medications Scheduled Apixaban Base (Eliquis) 5 Mg Tab, 5 MG PO BID Aspirin (Childrens Aspirin) 81 Mg Chew, 162 MG PO DAILY Ferrous Sulfate (Ferrous Sulfate) 324 Mg Tab, 324 MG PO BID Levothyroxine Sodium (Synthroid) 125 Mcg Tab, 125 MCG PO DAILY@0600 Lisinopril (Lisinopril) 40 Mg Tab, 40 MG PO BID Metformin Hydrochloride (Metformin HCl) 1,000 Mg Tab, 1,000 MG PO BID Rosuvastatin Calcium (Rosuvastatin Calcium) 40 Mg Tab, 1 TAB PO DAILY for high cholesterol Allergies Coded Allergies: No Known Drug Allergy (Verified Allergy, Unknown, 12/09/17) EAMON GREWAL MD Mar 29, 2018 13:38
== END 2018-03-29 14:30 | disposition home health service (06) | DRG 125 ==
LOC: M ED 13:01 → EDBD 13:01 → M ED INP 20:34 → M PCU 23:17 → OBSVTOIN 03-27 15:39 → INTOOBSV 03-27 15:39
PROVIDERS: ADMIT Internal Medicine; ATTEND Internal Medicine
DX: H43.392 Other vitreous opacities, left eye (principal); I48.91 Unspecified atrial fibrillation; E03.9 Hypothyroidism, unspecified; E11.65 Type 2 diabetes mellitus with hyperglycemia; I16.0 Hypertensive urgency; R32 Unspecified urinary incontinence; R15.9 Full incontinence of feces; I10 Essential (primary) hypertension; G89.29 Other chronic pain; Z91.14 Patient's other noncompliance with medication regimen; Z85.42 Personal history of malignant neoplasm of other parts of uterus; Z77.22 Contact with and (suspected) exposure to environmental tobacco smoke (acute) (chronic); Z79.4 Long term (current) use of insulin; Z79.899 Other long term (current) drug therapy; Z79.82 Long term (current) use of aspirin

== ENCOUNTER → 2018-10-13 | Outpatient (REF) | payer MEDICARE, MEDICAID ==
[~2018-10-13] MED LIST changes: -/CELE20CA; -/CELE20CA PO; -/ESCI10TA; -/GLIM4TA; +AMAR1TAB6; +ASPI-286 PO; +CELE1CAP4; +CELE1CAP4 PO; +ELIQ5TAB PO; +FERR324T2 PO; +LEVO125T4 PO; +LEXA1TAB; +LISI40TA PO; -LISI40TAB PO; +METF10004 PO; +ONDA4TAB5 PO; -ROSU40TA3 PO; +ROSU40TA4 PO
[2018-10-13 18:06] LABS: APPEARANCE, URINE HAZY (CLEAR); BACTERIA, URINE AUTO NEGATIVE (NEGATIVE); BILIRUBIN, URINE AUTO NEGATIVE (NEGATIVE); BLOOD, URINE BLOOD 1+ (NEGATIVE); COLOR, URINE YELLOW (YELLOW); GLUCOSE, URINE (UA) AUTO NEGATIVE (NEGATIVE); KETONE, URINE AUTO NEGATIVE (NEGATIVE); LEUKOCYTE ESTERASE, URINE AUTO NEGATIVE (NEGATIVE); NITRITE, URINE AUTO NEGATIVE (NEGATIVE); PROTEIN, URINE AUTO 3+ mg/dL (NEGATIVE); RBC, URINE AUTO 6 /HPF (0-3); SPECIFIC GRAVITY URINE AUTO 1.017 (1.002-1.035); SQUAMOUS EPITHELIAL CELL UR AU 1 /HPF (0-6); UROBILINOGEN, URINE AUTO 0.2 mg/dL (0.0-2.0); WBC, URINE AUTO 2 /HPF (0-3)
== END ==
LOC: M LAB REF 17:13
PROVIDERS: ATTEND Family Medicine
DX: E03.9 Hypothyroidism, unspecified (principal); E11.9 Type 2 diabetes mellitus without complications; Z13.228 Encounter for screening for other metabolic disorders

== ENCOUNTER → 2018-10-13 | Outpatient (REF) | payer MEDICARE ==
[2018-10-13 18:05] LABS: BASO % 0.5 % (0.0-1.0); EOS # 0.1 10^3/uL (0.0-0.50); EOS % 1.9 % (0.0-3.0); HEMATOCRIT 37.4 % (36.0-47.0); HEMOGLOBIN 11.8 g/dl (12.0-15.5); LYMPH # 1.6 10^3/uL (1.5-4.5); LYMPH % 22.3 % (24.0-44.0); MEAN CORPUSCULAR HEMOGLOBIN 25.8 pg (27.0-33.0); MEAN CORPUSCULAR HGB CONC 31.6 g/dl (32.0-36.5); MEAN CORPUSCULAR VOLUME 81.8 fl (80.0-96.0); MONO # 0.4 10^3/uL (0.0-0.8); MONO % 5.3 % (0.0-5.0); NEUTROPHILS # 5.1 10^3/uL (1.8-7.7); NEUTROPHILS % 69.6 % (36.0-66.0); PLATELET COUNT, AUTOMATED 200 10^3/uL (150-450); RED BLOOD COUNT 4.57 10^6/uL (4.00-5.40); WHITE BLOOD COUNT 7.3 10^3/uL (4.0-10.0)
[2018-10-13 18:39] LABS: ALBUMIN 3.4 GM/DL (3.2-5.2); ALT/SGPT 16 U/L (12-78); BILIRUBIN,TOTAL 0.4 MG/DL (0.2-1.0); BLOOD UREA NITROGEN 30 MG/DL (7-18); CALCIUM LEVEL 9.1 MG/DL (8.8-10.2); CARBON DIOXIDE LEVEL 28 MEQ/L (21-32); CHLORIDE LEVEL 107 MEQ/L (98-107); CHOLESTEROL LEVEL 171 MG/DL (<200); CHOLESTEROL RISK RATIO 3.489 (<5); CREATININE FOR GFR 0.86 MG/DL (0.55-1.30); FREE T4 1.05 NG/DL (0.76-1.46); GLOMERULAR FILTRATION RATE > 60.0 (>45); GLUCOSE, FASTING 98 MG/DL (70-100); HDL CHOLESTEROL 49 MG/DL (>40); LDL CHOLESTEROL 101 MG/DL (<100); NON-HDL-C 122 MG/DL; POTASSIUM SERUM 4.3 MEQ/L (3.5-5.1); SODIUM LEVEL 141 MEQ/L (136-145); TOTAL PROTEIN 7.3 GM/DL (6.4-8.2); TRIGLYCERIDES LEVEL 105 MG/DL (<150)
[2018-10-13 19:09] LABS: TOTAL 25(OH) VITAMIN D 16.6 NG/ML (30.0-100.0)
== END ==
LOC: M LAB REF 17:19
PROVIDERS: ATTEND Family Medicine
DX: E03.9 Hypothyroidism, unspecified (principal); E11.9 Type 2 diabetes mellitus without complications; Z13.228 Encounter for screening for other metabolic disorders

== ENCOUNTER 2019-01-04 16:56 | Emergency (ER) | payer MEDICARE, MEDICAID ==
[~2019-01-04] VITALS: Ht 162.6 cm; Wt 84.2 kg
[2019-01-04 17:14] VITALS: BP 178/92
[2019-01-04] MEDS ORDERED: CLON-412 PO (17:27)
[2019-01-04] MEDS ORDERED: METO1TAB7 PO (17:27)
[2019-01-04] MEDS ORDERED: DILT0.05 PO (17:27)
[2019-01-04] MEDS ORDERED: TRUL0.5I SQ (17:27)
[2019-01-04] MEDS ORDERED: OXYB5TAB10 PO (17:27)
[2019-01-04] MEDS ORDERED: ESCI10TA2 PO (17:27)
[2019-01-04] MEDS ORDERED: ALPR0.5T3 PO (17:27)
[2019-01-04 18:18] LABS: HEMATOCRIT 35.8 % (36.0-47.0); HEMOGLOBIN 11.1 g/dl (12.0-15.5); MEAN CORPUSCULAR HEMOGLOBIN 25.9 pg (27.0-33.0); MEAN CORPUSCULAR VOLUME 83.4 fl (80.0-96.0); PLATELET COUNT, AUTOMATED 179 10^3/uL (150-450); RED BLOOD COUNT 4.29 10^6/uL (4.00-5.40); WHITE BLOOD COUNT 8.2 10^3/uL (4.0-10.0)
[2019-01-04 18:43] LABS: AMPHETAMINES LEVEL URINE NEGATIVE (NEGATIVE); BARBITURATES URINE NEGATIVE (NEGATIVE); BENZODIAZEPINES URINE NEGATIVE (NEGATIVE); CANNABINOIDS URINE NEGATIVE (NEGATIVE); COCAINE METABOLITE URINE NEGATIVE (NEGATIVE); METHADONE URINE NEGATIVE (NEGATIVE); OPIATES URINE NEGATIVE (NEGATIVE); PHENCYCLIDINE URINE NEGATIVE (NEGATIVE)
[2019-01-04 18:56] LABS: ACETAMINOPHEN LEVEL < 2.0 UG/ML (10.0-30.0); ALBUMIN 3.4 GM/DL (3.2-5.2); ALT/SGPT 23 U/L (12-78); BILIRUBIN,DIRECT 0.2 MG/DL (0.0-0.2); BILIRUBIN,TOTAL 0.4 MG/DL (0.2-1.0); BLOOD UREA NITROGEN 37 MG/DL (7-18); CALCIUM LEVEL 8.9 MG/DL (8.8-10.2); CARBON DIOXIDE LEVEL 32 MEQ/L (21-32); CHLORIDE LEVEL 107 MEQ/L (98-107); ETHYL ALCOHOL (ETHANOL) < 0.003 % (0.000-0.010); GLOMERULAR FILTRATION RATE 53.2 (>45); GLUCOSE, FASTING 100 MG/DL (70-100); POTASSIUM SERUM 3.6 MEQ/L (3.5-5.1); SALICYLATE LEVEL < 1.7 MG/DL (5.0-30.0); SODIUM LEVEL 144 MEQ/L (136-145); TOTAL PROTEIN 7.3 GM/DL (6.4-8.2)
== END 2019-01-04 22:38 | disposition home or self-care (01) ==
LOC: M ED 16:56
DX: F43.20 Adjustment disorder, unspecified (principal); I10 Essential (primary) hypertension; E11.9 Type 2 diabetes mellitus without complications; I48.91 Unspecified atrial fibrillation; G89.29 Other chronic pain; E07.9 Disorder of thyroid, unspecified; Z79.899 Other long term (current) drug therapy; Z79.890 Hormone replacement therapy; Z79.01 Long term (current) use of anticoagulants
CPT/HCPCS: 36415; 80048; 80076; 80307; 84443; 85027; 99284; G0480

== ENCOUNTER → 2019-04-02 | Outpatient (REF) | payer MEDICARE, MEDICAID ==
[~2019-04-02] MED LIST changes: +ALPR0.5T3 PO; +CLON-412 PO; +DILT0.05 PO; +ESCI10TA2 PO; +METO1TAB7 PO; +OXYB5TAB10 PO; +TRUL0.5I SQ
[2019-04-02 18:10] LABS: ALBUMIN 2.7 GM/DL (3.2-5.2); ALT/SGPT 13 U/L (12-78); BILIRUBIN,TOTAL 0.6 MG/DL (0.2-1.0); BLOOD UREA NITROGEN 21 MG/DL (7-18); CALCIUM LEVEL 8.9 MG/DL (8.8-10.2); CARBON DIOXIDE LEVEL 27 MEQ/L (21-32); CHLORIDE LEVEL 109 MEQ/L (98-107); CHOLESTEROL LEVEL 179 MG/DL (<200); CHOLESTEROL RISK RATIO 5.593 (<5); CREATININE FOR GFR 0.84 MG/DL (0.55-1.30); FREE T4 1.08 NG/DL (0.76-1.46); GLOMERULAR FILTRATION RATE > 60.0 (>45); GLUCOSE, FASTING 121 MG/DL (70-100); HDL CHOLESTEROL 32 MG/DL (>40); LDL CHOLESTEROL 117 MG/DL (<100); NON-HDL-C 147 MG/DL; POTASSIUM SERUM 3.9 MEQ/L (3.5-5.1); SODIUM LEVEL 143 MEQ/L (136-145); TOTAL PROTEIN 6.7 GM/DL (6.4-8.2); TRIGLYCERIDES LEVEL 149 MG/DL (<150)
[2019-04-02 18:23] LABS: HEMOGLOBIN A1c 5.8 %
== END ==
LOC: M LAB REF 17:27
PROVIDERS: ATTEND Family Medicine
DX: E11.9 Type 2 diabetes mellitus without complications (principal); E03.9 Hypothyroidism, unspecified

== ENCOUNTER 2019-11-21 15:26 | Emergency (ER) | payer MEDICARE, MEDICAID ==
[~2019-11-21 15:26] MED LIST changes: +ONDA-83 PO; -ONDA4TAB5 PO
[2019-11-21] MEDS ORDERED: ACET-683 PO (15:43)
[2019-11-21] MEDS ORDERED: ATOR80TA59 PO (15:43)
[2019-11-21] MEDS ORDERED: FLEEENE6 PR (15:43)
[2019-11-21] MEDS ORDERED: ASPI81CH33 PO (15:43)
[2019-11-21] MEDS ORDERED: ARIP1TAB4 PO (15:43)
[2019-11-21] MEDS ORDERED: BISA10SU4 PR (15:43)
[2019-11-21] MEDS ORDERED: AMLO1TAB25 PO (15:43)
[2019-11-21] MEDS ORDERED: GUAI100L6 PO (15:50)
[2019-11-21] MEDS ORDERED: TRUL0.5I SC (15:50)
[2019-11-21] MEDS ORDERED: SM A10CA PO (15:50)
[2019-11-21] MEDS ORDERED: MAGN400T2 PO (15:50)
[2019-11-21 16:02] LABS: WHITE BLOOD COUNT 6.3 10^3/uL (4.0-10.0)
[2019-11-21 16:03] LABS: BASO % 0.6 % (0.0-1.0); EOS # 0.2 10^3/uL (0.0-0.5); EOS % 2.5 % (0.0-3.0); HEMOGLOBIN 9.5 g/dl (12.0-15.5); LYMPH # 1.4 10^3/uL (1.5-5.0); LYMPH % 22.9 % (24.0-44.0); MEAN CORPUSCULAR HGB CONC 31.7 g/dl (32.0-36.5); MEAN CORPUSCULAR VOLUME 85.2 fl (80.0-96.0); MONO # 0.5 10^3/uL (0.0-0.8); MONO % 8.3 % (0.0-5.0); NEUTROPHILS # 4.1 10^3/uL (1.5-8.5); NEUTROPHILS % 64.6 % (36.0-66.0); PLATELET COUNT, AUTOMATED 248 10^3/uL (150-450); RED BLOOD COUNT 3.52 10^6/uL (4.00-5.40)
[2019-11-21] MEDS ORDERED: NS 1,000 ML IV ONE (16:15)
[2019-11-21 16:39] LABS: ALBUMIN 3.3 GM/DL (3.2-5.2); BILIRUBIN,TOTAL 0.3 MG/DL (0.2-1.0); CALCIUM LEVEL 8.8 MG/DL (8.8-10.2); CREATININE FOR GFR 1.24 MG/DL (0.55-1.30); GLOMERULAR FILTRATION RATE 46.2 (>45); POTASSIUM SERUM 6.3 MEQ/L (3.5-5.1); TOTAL PROTEIN 6.8 GM/DL (6.4-8.2)
[2019-11-21] MEDS ORDERED: SOD POLYSTYRENE SULFONATE SUSP 15 GM/60 ML UD PO ONE (18:30)
[2019-11-21 20:43] VITALS: BP 154/74
--- NOTE | 2019-12-11 14:04 | ECGEPIP ---
[facility] - ED Test Date: 2019-11-21 Pat Name: IVAN ROYAL Department: Room: - Gender: Female Director Regulatory Agency: : [id number] Requested By: APRYL HALL Order Number: [id number] Reading MD: Sandie Reynoso Measurements Intervals [place] Rate: 68 P: -9 HI: 340 QRS: -34 QRSD: 105 T: 10 QT: 406 QTc: 435 Interpretive Statements SINUS RHYTHM WITH FIRST DEGREE AV BLOCK MARKED LEFT AXIS DEVIATION POSSIBLE ANTERIOR MYOCARDIAL INFARCTION, OF INDETERMINATE AGE ABNORMAL ECG SEE SCANNED DOWNTIME REPORT
== END 2019-11-21 21:05 | disposition home or self-care (01) ==
LOC: M ED 15:26 → EDBD 15:26 → M ED 21:05
DX: E87.5 Hyperkalemia (principal); R41.0 Disorientation, unspecified; I11.9 Hypertensive heart disease without heart failure; G43.909 Migraine, unspecified, not intractable, without status migrainosus; Z85.42 Personal history of malignant neoplasm of other parts of uterus; Z79.899 Other long term (current) drug therapy; Z79.01 Long term (current) use of anticoagulants; Z79.82 Long term (current) use of aspirin; Z79.84 Long term (current) use of oral hypoglycemic drugs

== ENCOUNTER 2020-08-11 17:09 | Emergency (ER) | payer MEDICARE, MEDICAID ==
[~2020-08-11] VITALS: Ht 165.1 cm; Wt 91.0 kg
[~2020-08-11 17:09] MED LIST changes: +ACET-683 PO; +AMLO1TAB25 PO; +ARIP1TAB4 PO; +ASPI81CH33 PO; +ATOR80TA59 PO; +BISA10SU4 PR; +ESCI10TA16 PO; -ESCI10TA2 PO; +FLEEENE6 PR; +GUAI100L6 PO; -LISI40TA PO; +LISI40TA4 PO; +MAGN400T2 PO; +SM A10CA PO; +TRUL0.5I SC
[2020-08-11 20:15] LABS: HEMATOCRIT 32.7 % (36.0-47.0); HEMOGLOBIN 10.4 g/dl (12.0-15.5); MEAN CORPUSCULAR HEMOGLOBIN 25.6 pg (27.0-33.0); MEAN CORPUSCULAR HGB CONC 31.8 g/dl (32.0-36.5); MEAN CORPUSCULAR VOLUME 80.3 fl (80.0-96.0); PLATELET COUNT, AUTOMATED 231 10^3/uL (150-450); RED BLOOD COUNT 4.07 10^6/uL (4.00-5.40); WHITE BLOOD COUNT 9.9 10^3/uL (4.0-10.0)
[2020-08-11 20:54] LABS: ACETAMINOPHEN LEVEL < 2.0 UG/ML (10.0-30.0); ALT/SGPT 15 U/L (12-78); BILIRUBIN,DIRECT < 0.1 MG/DL (0.0-0.2); BILIRUBIN,TOTAL 0.2 MG/DL (0.2-1.0); BLOOD UREA NITROGEN 34 MG/DL (7-18); CALCIUM LEVEL 8.8 MG/DL (8.8-10.2); CARBON DIOXIDE LEVEL 29 MEQ/L (21-32); CHLORIDE LEVEL 108 MEQ/L (98-107); CREATININE FOR GFR 1.02 MG/DL (0.55-1.30); ETHYL ALCOHOL (ETHANOL) < 0.003 % (0.000-0.010); GLOMERULAR FILTRATION RATE 57.7 (>45); GLUCOSE, FASTING 96 MG/DL (70-100); POTASSIUM SERUM 4.4 MEQ/L (3.5-5.1); SALICYLATE LEVEL < 1.7 MG/DL (5.0-30.0); SODIUM LEVEL 141 MEQ/L (136-145); TOTAL PROTEIN 6.6 GM/DL (6.4-8.2)
[2020-08-11 23:53] LABS: AMPHETAMINES LEVEL URINE NEGATIVE (NEGATIVE); BARBITURATES URINE NEGATIVE (NEGATIVE); BENZODIAZEPINES URINE NEGATIVE (NEGATIVE); CANNABINOIDS URINE NEGATIVE (NEGATIVE); COCAINE METABOLITE URINE NEGATIVE (NEGATIVE); METHADONE URINE NEGATIVE (NEGATIVE); OPIATES URINE NEGATIVE (NEGATIVE); PHENCYCLIDINE URINE NEGATIVE (NEGATIVE)
[2020-08-12] MEDS ORDERED: VENL-115 PO (00:17)
[2020-08-12] MEDS ORDERED: BACITAB PO (00:17)
[2020-08-12] MEDS ORDERED: TRUL0.5I SC (00:17)
[2020-08-12] MEDS ORDERED: BISA10SU PR (00:17)
[2020-08-12] MEDS ORDERED: ASPI-161 PO (00:17)
[2020-08-12] MEDS ORDERED: VENL150C43 PO (00:17)
[2020-08-12] MEDS ORDERED: LOKE5PAK PO (00:17)
[2020-08-12] MEDS ORDERED: MAGN400T2 PO (00:17)
[2020-08-12] MEDS ORDERED: ZOFR4TAB16 PO (00:17)
[2020-08-12] MEDS ORDERED: METO1TAB33 PO (00:17)
[2020-08-12] MEDS ORDERED: FERR1TAB8 PO (00:17)
[2020-08-12] MEDS ORDERED: ATOR40TA75 PO (00:17)
[2020-08-12] MEDS ORDERED: FLEEENE12 PR (00:17)
[2020-08-12] MEDS ORDERED: MILKSUS3 PO (00:17)
[2020-08-12] MEDS ORDERED: ELIQ5TAB PO (00:19)
[2020-08-12 03:35] VITALS: BP 140/91
--- NOTE | 2020-08-12 12:43 | REP ---
INDICATION: fall, knee pain COMPARISON: None. TECHNIQUE: AP and lateral bilateral knees. FINDINGS: There is no evidence of acute fracture, dislocation, or intrinsic bone disease.There is moderate medial joint space narrowing bilaterally. There is diffuse subchondral sclerosis and moderate spurring. Patellofemoral joints are also narrowed. There are large spurs of the superior poles of both patellas particularly on the right. There is a mild left suprapatellar effusion and a moderate right suprapatellar effusion. There are bilateral vascular calcifications in the posterior soft tissues. IMPRESSION: No fracture or dislocation. Moderate arthritic changes and bilateral effusions. A preliminary report was provided by virtual [facility]iology at the time of the exam. <Electronically signed by Noel Shepherd > 08/12/20 [id number]
== END 2020-08-12 04:42 | disposition home or self-care (01) ==
LOC: M ED 17:09
DX: F32.9 Major depressive disorder, single episode, unspecified (principal); F43.0 Acute stress reaction; I11.0 Hypertensive heart disease with heart failure; I50.9 Heart failure, unspecified; E78.70 Disorder of bile acid and cholesterol metabolism, unspecified; Z79.899 Other long term (current) drug therapy; Z79.82 Long term (current) use of aspirin

== ENCOUNTER → 2020-09-19 | Outpatient (CLI) | payer MEDICARE, MEDICAID ==
[~2020-09-19] MED LIST changes: +ASPI-161 PO; +ATOR40TA75 PO; +BACITAB PO; +BISA10SU PR; +DICL20GE TP; -DOXY100C37 PO; +DOXY1CAP62 PO; +FERR1TAB8 PO; +FLEEENE12 PR; +LOKE5PAK PO; +METO1TAB33 PO; +MILKSUS3 PO; +VENL-115 PO; +VENL150C43 PO; +ZOFR4TAB16 PO
== END ==
LOC: M LABSMTC 13:40
PROVIDERS: ATTEND Anesthesiology
DX: Z01.818 Encounter for other preprocedural examination (principal); Z11.52 Encounter for screening for COVID-19

== ENCOUNTER 2023-12-01 16:30 | Emergency (ER) | payer MEDICARE, MEDICAID ==
[~2023-12-01] VITALS: Ht 165.1 cm; Wt 93.6 kg
[~2023-12-01 16:30] MED LIST changes: -ASPI-161 PO; -ASPI-286 PO; +ASPI-615 PO; +DOXY-323 PO; -DOXY1CAP62 PO; -OXYB5TAB10 PO; +OXYB5TAB14 PO; -ROSU40TA4 PO; +ROSU40TA81 PO; +SM C81CH2 PO
[2023-12-01 17:11] VITALS: BP 143/67; TEMP 97.7; O2SAT 96
== END 2023-12-01 19:06 | disposition home or self-care (01) ==
LOC: EDBD 16:30 → M ED 16:30
DX: F43.0 Acute stress reaction (principal); I10 Essential (primary) hypertension; E78.5 Hyperlipidemia, unspecified; I48.91 Unspecified atrial fibrillation; E11.9 Type 2 diabetes mellitus without complications; Z79.1 Long term (current) use of non-steroidal anti-inflammatories (NSAID); Z79.01 Long term (current) use of anticoagulants; Z79.4 Long term (current) use of insulin; Z79.899 Other long term (current) drug therapy

== ENCOUNTER 2024-02-28 01:41 | Emergency (ER) | payer MEDICARE, MEDICAID ==
[~2024-02-28 01:41] MED LIST changes: -DOXY-323 PO; +DOXY-441 PO; +NYST1POW3 TOP; -NYST1POW9 TOP
[2024-02-28 02:09] VITALS: TEMP 96.5
[2024-02-28 03:01] LABS: HEMATOCRIT 33.7 % (36.0-47.0); HEMOGLOBIN 10.3 g/dl (12.0-15.5); MEAN CORPUSCULAR HEMOGLOBIN 24.6 pg (27.0-33.0); MEAN CORPUSCULAR HGB CONC 30.6 g/dl (32.0-36.5); MEAN CORPUSCULAR VOLUME 80.6 fl (80.0-96.0); PLATELET COUNT, AUTOMATED 256 10^3/uL (150-450); RED BLOOD COUNT 4.18 10^6/uL (4.00-5.40); WHITE BLOOD COUNT 8.2 10^3/uL (4.0-10.0)
[2024-02-28 03:26] LABS: ETHYL ALCOHOL (ETHANOL) < 0.003 % (0.000-0.010)
[2024-02-28 03:28] LABS: ALKALINE PHOSPHATASE 172 U/L (35-104); ALT/SGPT < 9 U/L (7.0-40); AST/SGOT < 8 U/L (<34); BILIRUBIN,DIRECT < 0.1 MG/DL (<0.4); BILIRUBIN,TOTAL 0.2 MG/DL (0.3-1.2); BLOOD UREA NITROGEN 41 MG/DL (9-23); CALCIUM LEVEL 9.2 MG/DL (8.3-10.6); CARBON DIOXIDE LEVEL 24 MMOL/L (20-31); CHLORIDE LEVEL 104 MMOL/L (98-107); GLOMERULAR FILTRATION RATE 36.7 (>45); GLUCOSE, FASTING 352 MG/DL (74-106); POTASSIUM SERUM 4.7 MMOL/L (3.5-5.1); SALICYLATE LEVEL < 3.0 MG/DL (<30); SODIUM LEVEL 135 MMOL/L (136-145); TOTAL PROTEIN 6.9 G/DL (5.7-8.2)
[2024-02-28 03:30] LABS: THYROID STIMULATING HORMONE 5.965 uIU/ML (0.55-4.78)
[2024-02-28 04:02] LABS: AMPHETAMINES LEVEL URINE NEGATIVE (NEGATIVE); BARBITURATES URINE NEGATIVE (NEGATIVE); BENZODIAZEPINES URINE NEGATIVE (NEGATIVE)
[2024-02-28 04:03] LABS: CANNABINOIDS URINE NEGATIVE (NEGATIVE); COCAINE METABOLITE URINE NEGATIVE (NEGATIVE); METHADONE URINE NEGATIVE (NEGATIVE); OPIATES URINE NEGATIVE (NEGATIVE); PHENCYCLIDINE URINE NEGATIVE (NEGATIVE)
[2024-02-28] MEDS ORDERED: CEFD1CAP9 PO (05:18)
[2024-02-28] MEDS: cefTRIAXone SOD 1 GM in DEXTROSE 5% (D5W) ADV/MINI-BAG 50 ML IV ONE (06:06)
[2024-02-28 06:38] VITALS: BP 185/80; O2SAT 96
== END 2024-02-28 08:25 | disposition home or self-care (01) ==
LOC: M ED 01:41
DX: F43.0 Acute stress reaction (principal); N39.0 Urinary tract infection, site not specified; I48.91 Unspecified atrial fibrillation; E11.9 Type 2 diabetes mellitus without complications; I10 Essential (primary) hypertension; Z79.1 Long term (current) use of non-steroidal anti-inflammatories (NSAID); Z79.01 Long term (current) use of anticoagulants; Z79.4 Long term (current) use of insulin; Z79.899 Other long term (current) drug therapy
CPT/HCPCS: 80048; 80076; 80143; 80307; 81001; 82077; 84443; 85027; 87086; 96374; 99284; J0696